=== PATIENT | male | born 1990 | race Caucasian/White ===

== ENCOUNTER 2023-08-18 19:23 | Inpatient (IN) | payer OTHER ==
[2023-08-18] MEDS ORDERED: LACTATED RINGERS SOLUTION 1,000 ML/1,000 ML INFUS.BAG IV SCH (20:15)
[2023-08-18] MEDS ORDERED: ONDANSETRON 4 MG TABLET PO ONE (20:17)
[2023-08-18] MEDS ORDERED: LACTATED RINGERS SOLUTION 1000 ML INFUS.BAG IV ONE (20:20)
[2023-08-18] MEDS ORDERED: ONDANSETRON 4 MG/2 ML VIAL ONE (20:45)
[2023-08-18 20:58] LABS: BASO % 0.3 % (0-2.0); EOS % 1.7 % (0-4.5); HEMATOCRIT 48.8 % (35.4-49); HEMOGLOBIN 16.9 GM/dL (11.7-16.9); LYMPH % 25.7 % (8-40); MCH 29.9 pg (25.7-33.7); MCHC 34.7 g/dl (32.0-35.9); MEAN CELL VOLUME 86.1 fl (80-96); MEAN PLT VOLUME 8.2 fl (7.5-11.1); NEUT % 67.3 % (42.8-82.8); PLATELET COUNT 223 10^3/uL (134-434); RBC 5.66 M/mm3 (4.00-5.60); RDW 12.6 % (11.9-15.9); WHITE BLOOD COUNT 8.6 K/mm3 (4.0-10.0)
[2023-08-18 21:17] LABS: INR 1.14 (0.83-1.09); PROTHROMBIN TIME (PATIENT) 13.2 SEC (9.7-13.0)
[2023-08-18 21:18] LABS: POTASSIUM 3.6 mmol/L (3.5-5.1)
[2023-08-18 21:20] LABS: BLOOD UREA NITROGEN 15.2 mg/dL (7-18)
[2023-08-18 21:21] LABS: ALBUMIN 4.9 g/dl (3.4-5.0)
[2023-08-18 21:25] LABS: TOT PROT 8.4 g/dl (6.4-8.2)
[2023-08-18] MEDS ORDERED: PIPERACILLIN/TAZOB 3.375 GM 3.375 GM in DEXTROSE 5%-WATER - 50 ML IVPB ONE (22:17)
[2023-08-18] MEDS ORDERED: PIPERACILLIN/TAZOB 3.375 GM 3.375 GM/50 ML BAG IVPB ONE (22:23)
[2023-08-18] MEDS ORDERED: DEXTROSE 5%-LACTATED RINGERS 1,000 ML IV SCH (23:00)
[2023-08-19] MEDS ORDERED: ONDANSETRON 4 MG/2 ML VIAL IVPUSH PRN ×2 (02:06→09:24)
[2023-08-19] MEDS ORDERED: IBUPROFEN 200 MG TABLET PO PRN (02:07)
[2023-08-19] MEDS ORDERED: morphine SULFATE 4 MG/ML VIAL IVPUSH PRN ×2 (02:08→09:24)
[2023-08-19 03:12] VITALS: BMI 25.4
[2023-08-19] MEDS: PIPERACILLIN/TAZOB 3.375 GM 3.375 GM in DEXTROSE 5%-WATER - 50 ML IVPB SCH ×2 (03:41→11:09)
[2023-08-19] MEDS ORDERED: PIPERACILLIN/TAZOB 3.375 GM 3.375 GM in DEXTROSE 5%-WATER - 50 ML IVPB SCH ×2 (04:00→10:00)
[2023-08-19] MEDS ORDERED: BUPIVACAINE HCL/PF 0.5% (5MG/ML) 10 ML VIAL ONE (07:26)
[2023-08-19] MEDS ORDERED: PROPOFOL 40 ML ONE (07:45)
[2023-08-19] MEDS ORDERED: FENTANYL CITRATE/PF 50 MCG/ML VIAL ONE ×3 (07:45→08:22)
[2023-08-19] MEDS ORDERED: MIDAZOLAM HCL 2 MG/2 ML SINGLE DOSE VIAL ONE (07:46)
[2023-08-19] MEDS ORDERED: ceFAZolin SODIUM 1 GM VIAL IVPB ONE (08:06)
[2023-08-19] MEDS ORDERED: BUPIVACAINE HCL/PF 0.5% (5MG/ML) 10 ML VIAL IJ ONE ×2 (08:12)
[2023-08-19] MEDS ORDERED: ROCURONIUM BROMIDE 50 MG/5 ML SYRINGE ONE (08:16)
[2023-08-19] MEDS ORDERED: NEOSTIGMINE METHYLSULFATE 0.5 MG/1 ML - 10 ML MDV ONE (08:23)
[2023-08-19 08:49] LABS: HEMATOCRIT 44.2 % (35.4-49); HEMOGLOBIN 14.6 GM/dL (11.7-16.9); MCH 29.1 pg (25.7-33.7); MEAN CELL VOLUME 88.2 fl (80-96); MEAN PLT VOLUME 8.6 fl (7.5-11.1); PLATELET COUNT 188 10^3/uL (134-434); RBC 5.02 M/mm3 (4.00-5.60); RDW 12.4 % (11.9-15.9); WHITE BLOOD COUNT 5.4 K/mm3 (4.0-10.0)
[2023-08-19 09:02] LABS: POTASSIUM 3.9 mmol/L (3.5-5.1)
[2023-08-19] MEDS ORDERED: SUGAMMADEX SODIUM 200 MG/2 ML VIAL ONE ×3 (09:02→09:05)
[2023-08-19 09:09] LABS: CALCIUM 8.5 mg/dL (8.5-10.1)
[2023-08-19 09:13] LABS: CREATININE 1.1 mg/dL (0.55-1.3)
[2023-08-19 09:14] LABS: BILIRUBIN,TOTAL 1.6 mg/dL (0.2-1); TOT PROT 6.7 g/dl (6.4-8.2)
[2023-08-19] MEDS ORDERED: PROMETHAZINE HCL 25 MG/1 ML VIAL IVPB PRN (09:20)
[2023-08-19] MEDS ORDERED: DEXTROSE 5%-LACTATED RINGERS 1,000 ML IV SCH (09:24)
[2023-08-19 09:30] LABS: ALBUMIN 3.8 g/dl (3.4-5.0)
[2023-08-19] MEDS ORDERED: LACTATED RINGERS SOLUTION 1,000 ML IV SCH (09:30)
[2023-08-19 14:24] VITALS: BP 116/64; PULSE 78; RESP 20; TEMP 97.7
== END 2023-08-19 15:30 | disposition home or self-care (01) | DRG 352 ==
LOC: JER 19:23 → JERBED 08-19 00:26 → J7W 08-19 02:30
PROVIDERS: ADMIT Internal Medicine
PROC: 0YU50JZ Supplement Right Inguinal Region with Synthetic Substitute, Open Approach (ICD-10-PCS; principal; 2023-08-19 07:30)
DX: K40.30 Unilateral inguinal hernia, with obstruction, without gangrene, not specified as recurrent (principal)
CPT/HCPCS: 36415; 74177-TC; 76870-TC; 80053; 83605; 85025; 85027; 85610; 86850; 86900; 86901; 88302-TC; 93005; 93010; 94010; 94760; 99285-25; C1781; Q9967